=== PATIENT | male | born 1975 | race Caucasian/White ===

== ENCOUNTER → 2024-05-24 | Outpatient (CLI) | payer MEDICARE, MEDICAID | LOC: M PLARAD 09:51 | PROVIDERS: ATTEND Pain Medicine Interventional Pain Medicine | DX: M96.1 Postlaminectomy syndrome, not elsewhere classified (principal); M54.14 Radiculopathy, thoracic region; M51.26 Other intervertebral disc displacement, lumbar region; M51.27 Other intervertebral disc displacement, lumbosacral region ==

== ENCOUNTER → 2024-05-28 | Outpatient (CLI) | payer MEDICARE, MEDICAID | LOC: M PLAIMG 12:13 → EDUNIT# 13:30 | PROVIDERS: ATTEND Pain Medicine Interventional Pain Medicine | DX: M54.12 Radiculopathy, cervical region (principal) ==